=== PATIENT | male | born 1990 | race African-American/Black ===

== ENCOUNTER 2019-08-02 10:06 | Emergency (ER) | payer SELFPAY ==
[~2019-08-02] VITALS: Ht 177.8 cm; Wt 55.0 kg
[2019-08-02 10:07] VITALS: BP 137/88
== END 2019-08-02 10:33 | disposition left against medical advice (07) ==
LOC: ER 10:06
DX: T50.901A Poisoning by unspecified drugs, medicaments and biological substances, accidental (unintentional), initial encounter (principal); Y92.89 Other specified places as the place of occurrence of the external cause
CPT/HCPCS: 99283